=== PATIENT | female | born 2005 | race Caucasian/White ===

== ENCOUNTER 2024-02-17 11:16 | Day surgery (SDC) | payer BC ==
[2024-02-17 12:00] LABS: HEMATOCRIT 45.7 % (32.4-45.2); HEMOGLOBIN 15.2 G/dL (10.7-15.3); MCH 29.6 pg (25.7-33.7); MCHC 33.3 g/dl (32.0-36.0); MEAN CELL VOLUME 88.9 fl (80-96); MEAN PLT VOLUME 7.5 fl (7.5-11.1); PLATELET COUNT 183.2 10^3/uL (134-434); RBC 5.14 10^6/uL (3.60-5.2)
[2024-02-17] MEDS: LACTATED RINGERS SOLUTION 1,000 ML IV STA (12:03)
[2024-02-17] MEDS: ONDANSETRON 4 MG/2 ML VIAL IVPUSH ONE (12:10)
[2024-02-17] MEDS: ACETAMINOPHEN 1000 MG/100 ML BAG IVPB ONE (12:11)
[2024-02-17 12:12] LABS: HCG,QUALITATIVE URINE Negative
[2024-02-17 12:21] LABS: ALBUMIN 4.7 g/dl (3.4-5.0); BILIRUBIN,TOTAL 0.9 mg/dl (0.2-1); CALCIUM 9.4 mg/dl (8.5-10.1); CREATININE 0.8 mg/dl (0.6-1.3); POTASSIUM 3.7 mmol/L (3.5-5.1); TOT PROT 7.4 g/dl (6.4-8.2)
[2024-02-17 12:44] LABS: PLATELET ESTIMATE ADEQUATE
[2024-02-17 13:19] LABS: INR 1.28 (0.83-1.09); PROTHROMBIN TIME (PATIENT) 14.8 SEC (9.7-13.0)
[2024-02-17 13:22] LABS: ACTIVATED PTT 28.4 SECONDS (25.2-36.5)
[2024-02-17] MEDS ORDERED: PIPERACILLIN/TAZOBACTAM 4.5 GM VIAL IVPB ONE (14:46)
[2024-02-17] MEDS: PIPERACILLIN/TAZOB 4.5 GM 4.5 GM/100 ML BAG IVPB ONE (14:52)
[2024-02-17] MEDS ORDERED: BUPIVACAINE HCL/PF 2.5 MG/ML - 30 ML VIAL IJ ONE (15:58)
[2024-02-17] MEDS: SODIUM CHLORIDE 1,000 ML IV STA (16:20)
[2024-02-17] MEDS ORDERED: MIDAZOLAM HCL 2 MG/2 ML SINGLE DOSE VIAL ONE (16:42)
[2024-02-17] MEDS ORDERED: SUCCINYLCHOLINE CHLORIDE 200 MG/10 ML SYRINGE ONE (16:42)
[2024-02-17] MEDS ORDERED: ROCURONIUM BROMIDE 50 MG/5 ML SYRINGE ONE (16:42)
[2024-02-17] MEDS ORDERED: PROPOFOL 20 ML ONE (16:42)
[2024-02-17] MEDS: BUPIVACAINE HCL/PF 0.25% (2.5MG/ML) 10 ML VIAL IJ ONE (17:05)
[2024-02-17] MEDS ORDERED: NEOSTIGMINE METHYLSULFATE 0.5 MG/1 ML - 10 ML MDV ONE (17:26)
[2024-02-17] MEDS ORDERED: oxyCODONE HCL 5 MG TABLET PO PRN (17:58)
[2024-02-17] MEDS ORDERED: LACTATED RINGERS SOLUTION 1,000 ML IV SCH (18:00)
[2024-02-17 19:12] VITALS: BMI 27.4
[2024-02-17 22:43] VITALS: RESP 18
[2024-02-17 23:29] VITALS: PULSE 101
[2024-02-18] MEDS: LACTATED RINGERS SOLUTION 1,000 ML IV SCH (08:06)
[2024-02-18] MEDS ORDERED: TESTOSTERONE NR SCH (10:00)
[2024-02-18 11:35] VITALS: BP 111/57; TEMP 98.4
== END 2024-02-18 13:22 | disposition home or self-care (01) ==
LOC: FER 11:16 → FASU 14:36 → FM/S 14:36 → SUATTDRO 14:36 → FASUSAT 02-18 13:22
PROC: 0DTJ4ZZ Resection of Appendix, Percutaneous Endoscopic Approach (ICD-10-PCS; principal; 2024-02-17 17:02)
DX: K35.80 Unspecified acute appendicitis (principal)
CPT/HCPCS: 36415; 74177-TC; 80053; 81003; 84703; 85027; 85610; 85730; 86850; 86900; 86901; 87040; 87086; 88304-TC; 94760; 99285-25; J0131; Q9967